=== PATIENT | female | born 1980 | race Hispanic/Latino ===

== ENCOUNTER 2018-04-17 08:13 | Inpatient (IN) | payer BC ==
[2018-04-17] MEDS ORDERED: NA CHLORIDE 0.9% 1,000 ML ONE (08:29)
[2018-04-17] MEDS ORDERED: ONDANSETRON 4 MG/2 ML VIAL ONE (08:29)
[2018-04-17] MEDS ORDERED: levETIRAcetam 1,000 MG in NA CHLORIDE 0.9% 100 ML IV ONE (08:30)
[2018-04-17 08:32] LABS: Absolute Lymphocytes (CBC) 1.4 K/uL (0.7-4.9); Absolute Monocytes 0.4 K/uL (0.1-1.3); Absolute Neutrophil 4.3 K/uL (1.8-8.0); Basophils % 0.8 % (0-1.3); Eosinophils % 0.5 % (0-4.4); Hematocrit 34.7 % (36.0-45.0); Lymphocytes % 23.3 % (15.3-44.8); MCH 25.7 pg (27.0-35.0); MCV 77.7 fL (80-100); MPV 8.8 fL (7.6-11.3); Monocytes % 6.6 % (3.3-12.3); RBC Red Blood Cell Count 4.46 M/uL (3.86-4.86)
[2018-04-17 08:50] LABS: BUN Blood Urea Nitrogen 10 mg/dL (7-18); Bicarbonate 22 mmol/L (21-32); Creatine Phosphokinase 56 U/L (26-192); Glucose Level 147 mg/dL (74-106); Potassium 3.2 mmol/L (3.5-5.1); Sodium Level 142 mmol/L (136-145); Troponin (Emerg Dept Use Only) < 0.02 ng/mL (0.0-0.045)
[2018-04-17] MEDS ORDERED: LORazepam 2 MG/ML VIAL ONE (08:52)
--- NOTE | 2018-04-17 09:11 | RAD REPORT ---
EXAM DESCRIPTION: CT - Head Brain Wo Cont - 04/17/2018 9:01 am CLINICAL HISTORY: Seizure COMPARISON: None. TECHNIQUE: Computed axial tomography of the head was obtained. IV contrast was not requested. All CT scans are performed using dose optimization technique as appropriate and may include automated exposure control or mA/KV adjustment according to patient size. FINDINGS: An intracranial bleed is not seen . The ventricles are normal in caliber. No extra-axial fluid collection is noted. Fluid within the sinuses/ mastoids is not seen. IMPRESSION: No acute intracranial abnormality is seen. If patient's symptoms persist MRI of the bra in would be recommended.
--- NOTE | 2018-04-17 09:45 | RAD REPORT ---
EXAM DESCRIPTION: Ciaran Single View04/17/2018 9:34 am CLINICAL HISTORY: Chest pain COMPARISON: none FINDINGS: The lungs appear clear of acute infiltrate. The heart is probably upper limits normal in size. The patient is in a poor degree of inspiration IMPRESSION: No acute abnormalities displayed
--- NOTE | 2018-04-17 11:04 | EKG ---
Test Date: 2018-04-17 Test Time: 08:24:[address] Judge: BALWINDER MEASUREMENT RESULTS: Intervals: Rate: 90 NC: 164 QRSD: 94 QT: 340 QTc: 415 [place]: P: 21 NC: 164 QRS: 31 T: 11 INTERPRETIVE STATEMENTS: Normal sinus rhythm Cannot rule out Anterior infarct, age undetermined Abnormal ECG No previous ECG available for comparison Electronically Signed On 04-17-18 11:03:27 CDT by Shreyas Tovar
--- NOTE | 2018-04-17 11:31 | EDPHYS ---
Physician Documentation [facility] Name: Florencia Rivas Age: 38 yrs Sex: Female : 1980 Arrival Date: 04/17/2018 Time: 08:16 Bed 3 Private MD: ED Physician Nolan Larose HPI: 04/17 08:19 This 38 yrs old Female presents to ER via Unassigned with complaints of rn seizure, chest pain. 08:19 The patient presents with a history of multiple seizures, a total of 2, that last 30 rn second(s). Seizure onset: just prior to arrival. Seizure Hx: Last seizure: The patient's last seizure was approximately 10 year(s) ago. Current symptoms: confusion. The patient has experienced similar episodes in the past. Was at work, per EMS, reported having chest pain, then proceeded to have a seizure, short lasting, called 911, had another seizure with EMS, lasted 30 sec, given 4mg ativan IM, last seizure 10 years ago, family member states under a lot of stress lately and recently had a breakup.. Historical: - Allergies: 08:28 No Known Allergies; sg - PMHx: 08:18 Seizures; sg - Immunization history:: Adult Immunizations not up to date. - Social history:: Smoking status: unknown. - Family history:: not pertinent. - Ebola Screening: : Patient negative for fever greater than or equal to 101.5 degrees Fahrenheit, and additional compatible Ebola Virus Disease symptoms Patient denies exposure to infectious person Patient denies travel to an Ebola-affected area in the 21 days before illness onset No symptoms or risks identified at this time. - Hospitalizations: : No recent hospitalization is reported. ROS: 08:19 Unable to obtain ROS due to altered mental status. rn Exam: 08:19 Constitutional: Overweight female, post-ictal, confused and appears scared. Head/Face: rn Normocephalic, atraumatic. Eyes: Pupil equally round and reactive, no nystagmus ENT: MMM Neck: Trachea midline, no thyromegaly or masses palpated, and no cervical lymphadenopathy. Supple, full range of motion without nuchal rigidity, or vertebral point tenderness. No Meningismus. Cardiovascular: tachycardic, regular, no murmur Respiratory: Mild hyperventilation, clear bilaterally Abdomen/GI: Soft, non-tender, with normal bowel sounds. No distension or tympany. No guarding or rebound. No evidence of tenderness throughout. Skin: warm, dry, no rash MS/ Extremity: Pulses equal, no cyanosis. Neurovascular intact. Full, normal range of motion. Equal circumference. Neuro: Awake, post-ictal and confused, follows some commands, but not speaking, moves all 4 extremities, and responds to family members touch/commands. Vital Signs: 08:20 BP 135 / 88; Pulse 87; Resp 15; Temp 97.5; Pulse Ox 100% on R/A; sg 08:45 BP 110 / 65; Pulse 90; Resp 17; Pulse Ox 100% 2 lpm ; hb 09:45 BP 110 / 66; Pulse 81; Resp 15; Pulse Ox 100% 2 lpm ; hb 11:00 BP 131 / 85; Pulse 76; Resp 15; Pulse Ox 100% on 2 lpm NC; hb 12:20 BP 134 / 78; Pulse 87; Resp 16; Pulse Ox 100% ; em1 13:16 BP 140 / 81; Pulse 70; Resp 15; Pulse Ox 100% on R/A; hb MDM: 08:16 Patient medically screened. rn 08:49 ED course: Pt with another seizure, lasted 1 min, given another 2mg ativan, seizure rn stopped, just started keppra a few minutes ago, will stabilize then admit for repeated seizures, not currently on AEDs. . 11:30 Differential diagnosis: seizure. Differential diagnosis: cardiac arrhythmia. Data rn reviewed: vital signs, nurses notes. Data reviewed: lab test result(s), EKG, radiologic studies, and as a result, I will admit patient. Counseling: I had a detailed discussion with the patient and/or guardian regarding: the historical points, exam findings, and any diagnostic results supporting the discharge/admit diagnosis, lab results, radiology results, the need for further work-up and treatment in the hospital. Response to treatment: the patient's condition has returned to base line, and as a result, I will admit patient. Admission orders: after a detailed discussion of the patient's condition and case, the admit orders are written by me. 04/17 08:17 Order name: UDS; Complete Time: 14:05 rn 04/17 08:17 Order name: Urine Microscopic Only; Complete Time: 14:05 rn 04/17 08:17 Order name: Basic Metabolic Panel; Complete Time: 08:59 rn 04/17 08:17 Order name: CBC with Diff; Complete Time: 08:59 rn 04/17 08:17 Order name: CPK; Complete Time: 08:59 rn 04/17 08:17 Order name: Magnesium; Complete Time: 08:59 rn 04/17 08:17 Order name: CT Head Brain wo Cont; Complete Time: 09:20 rn 04/17 08:17 Order name: Troponin (emerg Dept Use Only); Complete Time: 08:59 rn 04/17 08:18 Order name: XRAY Chest (1 view); Complete Time: 10:41 rn 04/17 08:19 Order name: Glucose, Ancillary Testing; Complete Time: 08:59 EDMS 04/17 12:05 Order name: Urine Dipstick--Ancillary (enter results); Complete Time: 14:05 em1 04/17 12:05 Order name: Urine --Ancillary (enter results); Complete Time: 14:05 em1 04/17 08:17 Order name: EKG; Complete Time: 08:18 rn 04/17 08:17 Order name: Cardiac monitoring; Complete Time: 08:19 rn 04/17 08:17 Order name: EKG - Nurse/Tech; Complete Time: 08:19 rn 04/17 08:17 Order name: IV Saline Lock; Complete Time: 08:19 rn 04/17 08:17 Order name: Labs collected and sent; Complete Time: 08:19 rn 04/17 08:17 Order name: NPO; Complete Time: 08:19 rn 04/17 08:17 Order name: O2 Per Protocol; Complete Time: 08:19 rn 04/17 08:17 Order name: O2 Sat Monitoring; Complete Time: 08:19 rn 04/17 08:17 Order name: Urine Dipstick-Ancillary (obtain specimen); Complete Time: 12:02 rn 04/17 12:03 Order name: Straight Cath - Urine; Complete Time: 12:03 dm5 Administered Medications: 08:28 Drug: NS 0.9% 1000 ml Route: IV; Rate: 1000 ml; Site: left antecubital; hb 08:28 Drug: Zofran 4 mg Route: IVP; Site: left antecubital; hb 08:40 Follow up: Response: No adverse reaction; Nausea is decreased sg 08:39 Drug: Keppra 1000 mg Route: IV; Rate: calculated rate; Site: left antecubital; hb 08:50 Drug: Ativan 2 mg Route: IVP; Site: left antecubital; hb 09:10 Follow up: Response: No adverse reaction sg Point of Care Testing: Blood Glucose: 08:25 Blood Glucose: 133 mg/dL; sg Ranges: Critical Glucose Levels:Adult <50 mg/dl or >400 mg/dl <40 mg/dl or >180 mg/dl Disposition: 04/17/18 11:31 Hospitalization ordered by Blanca Galvez for Inpatient Admission. Preliminary diagnosis are Epilepsy and recurrent seizures, Chest pain, unspecified. - Bed requested for Telemetry/MedSurg (Inpatient). - Status is Inpatient Admission. hb - Condition is Stable. - Problem is new. - Symptoms have improved. UTI on Admission? No Signatures: Dispatcher [employer] EDMS Lisa Verde RN RN dm5 Denise Salazar RN RN dw Haroon Tompkins RN RN Nolan Larose MD MD rn Baxter, Heather, RN RN Corrections: (The following items were deleted from the chart) 13:28 11:31 Hospitalization Ordered by Blanca Galvez MD for Inpatient Admission. Preliminary dw diagnosis is Epilepsy and recurrent seizures; Chest pain, unspecified. Bed requested for Telemetry/MedSurg (Inpatient). Status is Inpatient Admission. Condition is Stable. Problem is new. Symptoms have improved. UTI on Admission? No. rn 14:19 13:28 04/17/2018 11:31 Hospitalization Ordered by Blanca Galvez MD for Inpatient hb Admission. Preliminary diagnosis is Epilepsy and recurrent seizures; Chest pain, unspecified. Bed requested for Telemetry/MedSurg (Inpatient). Status is Inpatient Admission. Condition is Stable. Problem is new. Symptoms have improved. UTI on Admission? No. dw
--- NOTE | 2018-04-17 11:31 | ER ---
Nurse's Notes [facility] Name: Florencia Rivas Age: 38 yrs Sex: Female : 1980 Arrival Date: 04/17/2018 Time: 08:16 Bed 3 Private MD: Diagnosis: Epilepsy and recurrent seizures;Chest pain, unspecified Presentation: 04/17 08:23 Presenting complaint: Patient states: was at work, a co worker reported that the pt sg complained of chest pain, collapsed and had a seizure. pt girlfriend reports a hx of seizures, last seizure about 10 years ago. EMS reports Seizure like activity at job site and then one seizure lasting 1-2 mins in route to facility, unable to obtain IV access, Ativan 2 mg IM administered. Transition of care: patient was not received from another setting of care. Onset of symptoms was April 17, 2018. Initial Sepsis Screen: Does the patient meet any 2 criteria? No. Patient's initial sepsis screen is negative. Does the patient have a suspected source of infection? No. Patient's initial sepsis screen is negative. Care prior to arrival: Medication(s) given: Ativan 2 mg IM Oxygen administered. via nasal cannula, Missed IV attempt pt arrives on stretcher, left side lying position. 08:23 Method Of Arrival: EMS: [facility] 08:23 Acuity: NORBERTO 2 09:30 Risk Assessment: Do you want to hurt yourself or someone else? Patient reports no hb desire to harm self or others. Triage Assessment: 08:25 General: Appears in no apparent distress. Behavior is drowsy. Pain: Unable to use pain hb scale. FLACC scale score is 0 out of 10. Pt is post ictal. EENT: No deficits noted. No signs and/or symptoms were reported regarding the EENT system. Neuro: Level of Consciousness is post ictal. Cardiovascular: Heart tones S1 S2 present Capillary refill < 3 seconds Patient's skin is warm and dry. Respiratory: Airway is patent Trachea midline Respiratory effort is even, unlabored, Respiratory pattern is regular, symmetrical, Breath sounds are clear bilaterally. GI: Abdomen is non-distended, obese, Bowel sounds present X 4 quads. Abd is soft. : No deficits noted. No signs and/or symptoms were reported regarding the genitourinary system. Derm: Skin is intact, is healthy with good turgor. Musculoskeletal: No deficits noted. Historical: - Allergies: 08:28 No Known Allergies; sg - PMHx: 08:18 Seizures; sg - Immunization history:: Adult Immunizations not up to date. - Social history:: Smoking status: unknown. - Family history:: not pertinent. - Ebola Screening: : Patient negative for fever greater than or equal to 101.5 degrees Fahrenheit, and additional compatible Ebola Virus Disease symptoms Patient denies exposure to infectious person Patient denies travel to an Ebola-affected area in the 21 days before illness onset No symptoms or risks identified at this time. - Hospitalizations: : No recent hospitalization is reported. Screenin:18 Nutritional screening: No deficits noted. Tuberculosis screening: No symptoms or risk ss factors identified. 08:30 Fall Risk Total Arguelles Fall Scale indicates High Risk Score (45 or more points). Fall hb prevention measures have been instituted. Side Rails Up X 2 Frequent Obs/Assessments Occuring Family Present and informed to notify staff if the need to leave the bedside As available patient and family educated on Fall Prevention Program and Strategies. 09:45 Abuse screen: Denies threats or abuse. Denies injuries from another. hb Assessment: 08:30 General: see triage assessment. hb 08:50 Reassessment: Seizure activity lasting approx 1 minute. Lachelle Elliott notified at bedside. hb Ativan 2mg IVP administered as ordered. 08:56 Reassessment: Pt transported to CT via stretcher with sonal michael and Haroon DUMONT. hb 09:05 Reassessment: Pt returned from CT. Pt is post ictal. VSS. Family remains at bedside. hb 09:45 Reassessment: Patient appears in no apparent distress at this time. Patient and/or hb family updated on plan of care and expected duration. Pain level reassessed. Pt is lethargic, oriented x 4. Family at bedside. 10:45 Reassessment: Patient appears in no apparent distress at this time. Patient and/or hb family updated on plan of care and expected duration. Pain level reassessed. Patient is alert, oriented x 3, equal unlabored respirations, skin warm/dry/pink. 11:30 Reassessment: Patient appears in no apparent distress at this time. No changes from hb previously documented assessment. Patient and/or family updated on plan of care and expected duration. Pain level reassessed. Patient is alert, oriented x 3, equal unlabored respirations, skin warm/dry/pink. 12:30 Reassessment: Patient appears in no apparent distress at this time. No changes from hb previously documented assessment. Patient and/or family updated on plan of care and expected duration. Pain level reassessed. Patient is alert, oriented x 3, equal unlabored respirations, skin warm/dry/pink. 13:15 Reassessment: Patient appears in no apparent distress at this time. No changes from hb previously documented assessment. Patient and/or family updated on plan of care and expected duration. Pain level reassessed. Patient is alert, oriented x 3, equal unlabored respirations, skin warm/dry/pink. Family remains at bedside. Awaiting room assignment at this time. 14:00 Reassessment: Patient appears in no apparent distress at this time. No changes from hb previously documented assessment. Patient and/or family updated on plan of care and expected duration. Pain level reassessed. Patient is alert, oriented x 3, equal unlabored respirations, skin warm/dry/pink. Vital Signs: 08:20 BP 135 / 88; Pulse 87; Resp 15; Temp 97.5; Pulse Ox 100% on R/A; sg 08:45 BP 110 / 65; Pulse 90; Resp 17; Pulse Ox 100% 2 lpm ; hb 09:45 BP 110 / 66; Pulse 81; Resp 15; Pulse Ox 100% 2 lpm ; hb 11:00 BP 131 / 85; Pulse 76; Resp 15; Pulse Ox 100% on 2 lpm NC; hb 12:20 BP 134 / 78; Pulse 87; Resp 16; Pulse Ox 100% ; em1 13:16 BP 140 / 81; Pulse 70; Resp 15; Pulse Ox 100% on R/A; hb ED Course: 08:16 Patient arrived in ED. rn 08:16 Nolan Larose MD is Attending Physician. rn 08:18 Inserted saline lock: 22 gauge in left antecubital area, using aseptic technique. Blood ss collected. Oxygen administration via nasal cannula \T\ 2L/min. 08:18 Patient has correct armband on for positive identification. Placed in gown. Bed in low ss position. Call light in reach. Side rails up X2. Adult w/ patient. Seizure precautions initiated. court recording monitor on. Pulse ox on. NIBP on. 08:26 Triage completed. sg 08:30 Arm band placed on. hb 08:35 EKG done, by photogrammetric technician. reviewed by Nolan Larose MD. at1 08:38 Carol Butts, RN is Primary Nurse. hb 09:01 CT completed. Patient tolerated procedure well. Patient moved to CT via stretcher. Patient moved back from CT. 09:01 CT Head Brain wo Cont In Process Unspecified. EDMS 09:03 Radiology exam delayed due to PT IN CT. sw 09:15 RN/REALTY LOAN SPECIALIST escort patient out of department to CT scan with oxygen, surveillance system monitor, ER sg tech. 09:34 XRAY Chest (1 view) In Process Unspecified. EDMS 11:31 Blanca Galvez MD is Hospitalizing Provider. rn 14:15 No provider procedures requiring assistance completed. Patient admitted, IV remains in hb place. Administered Medications: 08:28 Drug: NS 0.9% 1000 ml Route: IV; Rate: 1000 ml; Site: left antecubital; hb 08:28 Drug: Zofran 4 mg Route: IVP; Site: left antecubital; hb 08:40 Follow up: Response: No adverse reaction; Nausea is decreased sg 08:39 Drug: Keppra 1000 mg Route: IV; Rate: calculated rate; Site: left antecubital; hb 08:50 Drug: Ativan 2 mg Route: IVP; Site: left antecubital; hb 09:10 Follow up: Response: No adverse reaction sg Point of Care Testing: Blood Glucose: 08:25 Blood Glucose: 133 mg/dL; sg Ranges: Outcome: 11:31 Decision to Hospitalize by Provider. rn 14:15 Admitted to Tele accompanied by tech, family with patient, via stretcher, room 421, Report called to TIM Denney 14:15 Condition: stable 14:15 Instructed on the need for admit, Demonstrated understanding of instructions. 14:19 Patient left the ED. hb Signatures: Dispatcher [employer] EDMS Haroon Tompkins, RN Magali Rodríguez Roman, MD MD rn Martinez, Jose emLeyla Sanz RN RN Em Bar, director of intelligence EKG Tat1 Ernestine Thompson Carol Butts, RN TIM hb
[2018-04-17 12:17] LABS: Urine Blood NEGATIVE (NEG); Urine Glucose NEGATIVE (NEG); Urine Protein NEGATIVE (NEG); Urine pH 7.5 (5.0-7.0)
[2018-04-17 12:21] LABS: Barbiturates NEGATIVE (NEGATIVE); Benzodiazepines NEGATIVE (NEGATIVE); Cocaine NEGATIVE (NEGATIVE); METHAMPHETAM NEGATIVE (NEGATIVE); Methadone NEGATIVE (NEGATIVE); Opiates NEGATIVE (NEGATIVE); Phencyclidine NEGATIVE (NEGATIVE); THC Cannibis NEGATIVE (NEGATIVE)
[2018-04-17 12:41] LABS: Urine Amorphous Sediment 2+ /HPF (NONE SEEN); Urine Bacteria NONE SEEN /HPF (<20); Urine Culture Reflex Order NOT NEEDED; Urine RBC NONE SEEN /HPF (NONE SEEN)
[2018-04-17] MEDS ORDERED: ACETAMINOPHEN 500 MG TAB PO PRN (14:48)
[2018-04-17] MEDS ORDERED: ONDANSETRON 4 MG/2 ML VIAL IV PRN (14:48)
[2018-04-17] MEDS ORDERED: LORazepam 2 MG/ML VIAL IV PRN (14:48)
[2018-04-17] MEDS ORDERED: POTASSIUM 25 MEQ EFFERV TAB PO ONE ×2 (15:00→21:52)
[2018-04-17] MEDS: NA CHLORIDE 0.9% 1,000 ML IV SCH ×2 (15:20→21:50)
[2018-04-17] MEDS: SERTRALINE HCL 100 MG TAB PO SCH (15:21)
[2018-04-17 16:01] LABS: RPR Titer ND
--- NOTE | 2018-04-17 16:44 | P.HP ---
Certification for Inpatient Patient admitted to: Inpatient With expected LOS: >2 Midnights Patient will require the following post-hospital care: None Practitioner: I am a practitioner with admitting privileges, knowledge of patient current condition, hospital course, and medical plan of care. Services: Services provided to patient in accordance with Admission requirements found in Title 42 Section 412.3 of the Code of Federal Regulations Patient History Date of Service: 04/17/18 Primary Care Provider: None Reason for admission: Loyd History of Present Illness: This is a 38-year-old female with significant past medical history who presented to the ED after having a seizure episode at work. Patient stated that she was at work this morning when she started having some chest pain and passed out and had seizure episode at work according to her coworkers. Patient then presented to the ED for further workup. Patient states that she does have a history of seizures however she has not had any seizures in over 20 years. She has never taken any medications procedures well. Patient states that recently she has been having a lot of anxiety and stress at work and she has been taking her Klonopin for panic attack more frequently than before. Patient stated however that Klonopin was making her sick and so she stopped taking it about 1 week ago with her Zoloft as well. Patient denies having any fever chills nausea vomiting or any other associated symptoms at this time. Other than having 1 witnessed seizure patient does not have any complaints to offer Allergies No Known Allergies Allergy (Unverified 04/17/18 13:37) Home Medications: Rosuvastatin [Crestor*] 1 tab PO BEDTIME 04/17/18 Sertraline [Zoloft*] 1 tab PO DAILY 04/17/18 - Past Medical/Surgical History Has patient received pneumonia vaccine in the past: No Diabetic: No -: Hypoglycemia -: Seizure -: Restless leg syndrome -: High cholesterol - Social History Smoking Status: Former smoker Alcohol use: Yes CD- Drugs: No Caffeine use: Yes Place of Residence: Home Review of Systems 10-point ROS is otherwise unremarkable Physical Examination - Vital Signs Temperature: 97.6 F Blood Pressure: 128/76 Pulse: 82 Respirations: 18 Pulse Ox (%): 97 - Physical Exam General: Alert, In no apparent distress HEENT: Atraumatic, PERRLA, Mucous membr. moist/pink, EOMI, Sclerae nonicteric Neck: Supple, 2+ carotid pulse no bruit, No LAD, Without JVD or thyroid abnormality Respiratory: Clear to auscultation bilaterally, Normal air movement Cardiovascular: Regular rate/rhythm, Normal S1 S2 Gastrointestinal: Normal bowel sounds, No tenderness Musculoskeletal: No tenderness Integumentary: No rashes Neurological: Normal gait, Normal speech, Normal strength at 5/5 x4 extr, Normal tone, Normal affect Lymphatics: No axilla or inguinal lymphadenopathy - Studies Laboratory Data (last 24 hrs) 04/17/18 08:20: WBC 6.2, Hgb 11.5 L, Hct 34.7 L, Plt Count 374 04/17/18 08:20: Sodium 142, Potassium 3.2 L, BUN 10, Creatinine 1.20, Glucose 147 H, Magnesium 2.0 Assessment and Plan - Problems (Diagnosis) (1) Seizure Current Visit: Yes Status: Acute Plan: Seizure activity with unknown Etilogy. Possible 2.2 to increase stress -keppra loading dose and then 500mg BID -EEG ordered -Neurology consulted -Culture and lab work pending Discharge Plan: Home Plan to discharge in: 48 Hours - Advance Directives Does patient have a Living Will: No Does patient have a Durable POA for Healthcare: No - Code Status/Comfort Care Code Status Assessed: Yes Critical Care: No
[2018-04-17] MEDS ORDERED: ENOXAPARIN 40 MG/0.4 ML SQ SCH (17:00)
[2018-04-17 20:47] LABS: RPR (Rapid Plasma Reagin) NON-REACT (NON-REACT)
[2018-04-17] MEDS ORDERED: ROSUVASTATIN 10 MG TAB PO SCH (21:00)
[2018-04-17] MEDS ORDERED: LEVETIRACETAM 500 MG/5 ML VIAL IV ONE (21:28)
[2018-04-17] MEDS ORDERED: NA CHLORIDE 0.9% 100 ML ONE (22:03)
[2018-04-17] MEDS: levETIRAcetam 500 MG in NA CHLORIDE 0.9% 100 ML IV SCH (22:16)
[2018-04-18] MEDS: levETIRAcetam 500 MG in NA CHLORIDE 0.9% 100 ML IV SCH (08:55)
[2018-04-18] MEDS: SERTRALINE HCL 100 MG TAB PO SCH (08:55)
[2018-04-18 09:56] LABS: Absolute Lymphocytes (CBC) 1.8 K/uL (0.7-4.9); Absolute Monocytes 0.5 K/uL (0.1-1.3); Absolute Neutrophil 3.3 K/uL (1.8-8.0); Basophils % 0.9 % (0-1.3); Eosinophils % 1.4 % (0-4.4); Hematocrit 32.3 % (36.0-45.0); Lymphocytes % 31.5 % (15.3-44.8); MCH 25.7 pg (27.0-35.0); MCV 77.5 fL (80-100); MPV 8.9 fL (7.6-11.3); Monocytes % 8.5 % (3.3-12.3); RBC Red Blood Cell Count 4.16 M/uL (3.86-4.86)
[2018-04-18 11:19] LABS: Albumin 3.1 g/dL (3.4-5.0); Bilirubin Total 0.7 mg/dL (0.2-1.0); Phosphorus 2.6 mg/dL (2.5-4.9); Potassium 3.7 mmol/L (3.5-5.1); Protein, Total 6.5 g/dL (6.4-8.2)
--- NOTE | 2018-04-18 11:53 | EEG ---
CHART: [id number] TEST ID#: [id number] DATE OF STUDY: 04/17/2018 THE EEG WAS RECORDED PORTABLE IN THE PATIENTS ROOM ON A 17 CHANNEL MACHINE. ELECTRODES WERE APPLIED IN THE USUAL MANNER USING THE INTERNATIONAL 10-20 SYSTEM. THE WAKING BACKGROUND RHYTHM IN THIS RECORD CONSISTS OF VERY WELL DEVELOPED AND WELL ORGANIZED WAVES OF 10 HZ., MAXIMAL IN THE POSTERIOR HEAD REGIONS WHICH ATTENUATE NORMALLY WITH EYE OPENING. LOW-VOLTAGE 18-22 HZ ACTIVITY IS EXPRESSED IN THE FRONTAL REGIONS. THERE ARE NO FOCAL OR LATERALIZING FEATURES. NO EPILEPTIFORM ACTIVITY APPEARS. SLEEP OCCURRED NATURALLY. IN ADDTION NORMAL SLEEP PATTERNS ARE PRESENT. HYPERVENTILATION WAS NOT PERFORMED. PHOTIC STIMULATION PRODUCED GOOD DRIVING BILATERALLY. IMPRESSION: NORMAL EEG FOR THE AGE OF THE PATIENT IN [place], DROWSINESS AND SLEEP.
[2018-04-18] MEDS ORDERED: POTASSIUM CL SA 10 MEQ TAB PO ONE (12:04)
--- NOTE | 2018-04-18 14:37 | P.SSS ---
Patient History Date of Service: 04/18/18 Primary Care Provider: None Reason for admission: Loyd History of Present Illness: This is a 38-year-old female with significant past medical history who presented to the ED after having a seizure episode at work. Patient stated that she was at work this morning when she started having some chest pain and passed out and had seizure episode at work according to her coworkers. Patient then presented to the ED for further workup. Patient states that she does have a history of seizures however she has not had any seizures in over 20 years. She has never taken any medications procedures well. Patient states that recently she has been having a lot of anxiety and stress at work and she has been taking her Klonopin for panic attack more frequently than before. Patient stated however that Klonopin was making her sick and so she stopped taking it about 1 week ago with her Zoloft as well. Patient denies having any fever chills nausea vomiting or any other associated symptoms at this time. Other than having 1 witnessed seizure patient does not have any complaints to offer Allergies No Known Allergies Allergy (Unverified 04/17/18 13:37) Home Medications: Rosuvastatin [Crestor*] 1 tab PO BEDTIME 04/17/18 Sertraline [Zoloft*] 1 tab PO DAILY 04/17/18 Levetiracetam [Keppra] 500 mg PO BID #60 tablet 04/18/18 - Past Medical/Surgical History Has patient received pneumonia vaccine in the past: No Diabetic: No -: Hypoglycemia -: Seizure -: Restless leg syndrome -: High cholesterol - Social History Smoking Status: Former smoker Alcohol use: Yes CD- Drugs: No Caffeine use: Yes Place of Residence: Home Review of Systems 10-point ROS is otherwise unremarkable Physical Examination - Vital Signs Temperature: 99.4 F Blood Pressure: 123/64 Pulse: 76 Respirations: 16 Pulse Ox (%): 96 - Physical Exam General: Alert, In no apparent distress HEENT: Atraumatic, PERRLA, Mucous membr. moist/pink, EOMI, Sclerae nonicteric Neck: Supple, 2+ carotid pulse no bruit, No LAD, Without JVD or thyroid abnormality Respiratory: Clear to auscultation bilaterally, Normal air movement Cardiovascular: Regular rate/rhythm, Normal S1 S2 Gastrointestinal: Normal bowel sounds, No tenderness Musculoskeletal: No tenderness Integumentary: No rashes Neurological: Normal gait, Normal speech, Normal strength at 5/5 x4 extr, Normal tone, Normal affect Lymphatics: No axilla or inguinal lymphadenopathy - Diagnosis (Problem(s)) (1) Seizure Current Visit: Yes Status: Acute Plan: Seizure activity 2.2 to stress -keppra 500mg BID -EEG WNL -Neurology consulted - Recc DC home -On Keppra Treatment Summary: Overall During the hospital stay patient remained stable The patient was initially admitted to the hospital after sustaining seizures and workup. Patient was started on Keppra. Patient remained seizure free while in hospital for 24 hr. EEG was within normal limits. Neurology was consulted who recommended the patient be discharged home safely with Keppra 500 b.i.d.. Patient was educated on not driving for next 3 months and not operating heavy machinery and lifting heavy objects while on medication for next 3 months. Patient demonstrated understanding and thus was discharged home under stable condition - Disposition Disposition: ROUTINE DISCHARGE Condition: GOOD Patient Discharge Instructions: Please f.u with Dr Mcmillan in 1 to 2 weeks post discharge. New medication. Keppra 500mg BID. Your EEG was within normal limits. Diet: Regular Activity: Ad dylon
--- NOTE | 2018-04-18 23:19 | CON ---
Reason For Consultation: Consultation called because of seizures. History Of Present Illness: Ms. Rivas is a 38-year-old patient, who reportedly had a history of seizu res at least 20 years ago, but the type was not characterized and she has never treated. She was doi ng well until this most recent seizure, which occurred yesterday, they brought her to hospital. She has been taking benzodiazepine and Klonopin for panic attacks, which by the way have not been charact erized, but has nausea and felt sick and stopped that medication about a week ago. She was also on Z oloft for depression. The seizure occurred at work. She reportedly passed out and had seizure-like activity, unclear how long or if the patient actually did have tongue biting or loss of bladder or kristi wel control. She was brought to [facility], where her workup included a negative head CT sc an and an EEG is actually normal. Chest x-ray showed no acute cardiopulmonary abnormalities and she had blood work that revealed normal complete blood count with differential, except for mild anemia. White blood cell count was normal. Sedimentation rate slightly elevated at 36. Her electrolyte pane l showed glucose ranging between 143-147. Liver function studies unremarkable. B12 level normal. P otassium is slightly low at 3.2. Urine drug screen is unremarkable. RPR nonreactive. She was given Keppra load in the emergency room and was on 500 mg twice daily and had no additional seizures since hospitalization. Past Medical History: Dyslipidemia, depression, seizures, and restless legs syndrome. Allergies: NO KNOWN DRUG ALLERGIES. Medications At Home: Crestor and Zoloft daily. Social History: Reports alcohol use in the past. She said the seizures were due to drug use, but no recent drug use. No recent smoking. Lives with a friend at home. Family History: Negative for seizures. Review of Systems: No recent fevers or chills. No nausea, vomiting, myalgias, arthralgias, headache, weight change, or rash. No psychiatric issues aside from mentioned above, which is depression and anxiety. Physical Examination: Vital Signs: Blood pressure 120/64, pulse 76, respiratory rate 16, temperature 99.4, oxygen saturati on 99% on room air. Weight 200 pounds, height 5 feet and 7 inches, and BMI 31.3. General: Ms. Rvias is resting comfortably in bed. She is in no acute distress. Friend is at the bed side. HEENT: She is normocephalic, atraumatic. Sclerae are anicteric. Oropharynx is moist and pink. Neck: Supple. Chest: Clear. Heart: Regular. Extremities: Show no edema, cyanosis, or clubbing. Neurological: She is alert and oriented to person, place, time, and situation. She has no expressiv e or receptive aphasias. Cranial nerve examination revealed no deficits on 2 through 12. Motor exam ination, she has full strength in the upper and lower extremities proximally and distally. Sensation intact to light touch and temperature in the arms and legs. Coordination intact in the upper and lo wer extremities. Reflexes are 2+ in upper and lower extremities. Gait, good stance, right arm swing . Assessment: Ms. Rivas is a 38-year-old patient with a remote history of seizures and apparently gener alized seizure after withdrawing from Klonopin 1 week previously. She did use illegal drugs in the p ast, but denies any recent use of drugs. Her head CT scan of brain and neurological examination are normal. Plan: 1.The patient was told of the importance of not operating heavy machinery, where her work actually d oes require her to do that or drive a motor vehicle for at least 3 months from the date of seizure, w hich was yesterday. 2.She should be on Keppra 500 mg twice daily, again at least 3 months. 3.She was told of the importance of rest and good sleeping at night and reducing stress and regular exercise to help minimize the risk of additional seizures. 4.She should follow up with Dr. Mcmillan's clinic 1 month after discharge. She may have at that poi nt brain MRI without and with contrast and ambulatory video EEG monitoring for seizure characterizati on. KINGSTON/ALEKSANDRA Voice ID: [id number] Report ID: [id number]
== END 2018-04-18 15:40 | disposition home or self-care (01) | DRG 101 ==
LOC: ER 08:13 → ERHOLD 12:06 → 4TH 14:02
PROVIDERS: ADMIT Family Medicine; ATTEND Family Medicine
DX: R56.9 Unspecified convulsions (principal); G25.81 Restless legs syndrome; E78.5 Hyperlipidemia, unspecified; F32.9 Major depressive disorder, single episode, unspecified; Z87.891 Personal history of nicotine dependence
CPT/HCPCS: 36415; 70450; 71045; 80048; 80053; 80307; 81003; 81015; 81025; 82550; 82607; 82962; 83735; 84100; 84132; 84484; 85025; 85652; 86592; 93005; 94760; 95819; 96374; 96375; 99285; J1650; J1953; J2405; J7030